=== PATIENT | female | born 1960 | race African-American/Black ===

== ENCOUNTER 2017-08-26 19:33 | Emergency (ER) | payer BC ==
[~2017-08-26] VITALS: Ht 165.1 cm; Wt 115.0 kg
[2017-08-26 20:01] VITALS: BP 148/79
[2017-08-27] MEDS ORDERED: METF500T4 PO (18:32)
[2017-08-27] MEDS ORDERED: HYDR25TA PO (18:32)
== END 2017-08-27 | disposition left against medical advice (07) ==
LOC: ER 20:25
DX: R53.1 Weakness (principal); Z53.21 Procedure and treatment not carried out due to patient leaving prior to being seen by health care provider